=== PATIENT | female | born 2000 | race African-American/Black ===

== ENCOUNTER 2019-04-29 11:35 | Emergency (ER) | payer OTHER ==
[2019-04-29] MEDS ORDERED: SODIUM CHLORIDE 0.9% 1,000 ML IV ONE (12:40)
[2019-04-29] MEDS ORDERED: KETOROLAC 30 MG/ML VIAL IVP STA (12:40)
[2019-04-29] MEDS ORDERED: ONDANSETRON 4 MG/2 ML VIAL IVP STA (12:40)
--- NOTE | 2019-04-29 12:41 | ED Physician Documentation ---
PD HPI ABD PAIN - Stated complaint Stated Complaint: V/D - Chief complaint Chief Complaint: Abd Pain - History obtained from History obtained from: Patient - History of Present Illness Timing - onset: Today (She was fine last night, she woke up abruptly at 730 this morning with central abdominal cramps that are coming and going associated with nausea, vomiting, and diarrhea. She was getting better and then got worse again. No recent travel or sick contacts. No fevers. She is a history of anemia, no abdominal surgeries in the past.) Review of Systems Ten Systems: 10 systems reviewed and negative Constitutional: denies: Fever, Chills Respiratory: denies: Dyspnea, Cough GI: reports: Abdominal Pain, Nausea, Vomiting, Diarrhea. denies: Hematemesis, Bloody / black stool : denies: Dysuria, Frequency PD PAST MEDICAL HISTORY - Past Medical History Past Medical History: Yes Respiratory: Asthma - Past Surgical History Past Surgical History: Yes HEENT: Other - Present Medications Home Medications: Ambulatory Orders Medication Instructions Recorded Confirmed Ondansetron Odt [Zofran] 4 mg TL Q6H PRN #10 tablet 04/29/19 RX: Dicyclomine [Bentyl] 20 mg PO QID PRN #15 capsule 04/29/19 - Allergies Allergies/Adverse Reactions: Allergies Allergy/AdvReac Type Severity Reaction Status Date / Time No Known Drug Allergies Allergy Verified 04/29/19 11:48 - Social History Does the pt smoke?: Yes Smoking Status: Current some day smoker Does the pt drink ETOH?: Yes Does the pt have substance abuse?: No Substance Use and Type: Marijuana - Immunizations Immunizations are current?: Yes - POLST Patient has POLST: No PD ED PE NORMAL - Vitals Vital signs reviewed: Yes - General General: Alert and oriented X 3, No acute distress - HEENT HEENT: Pharynx benign - Cardiac Cardiac: RRR, No murmur - Abdomen Abdomen: Normal bowel sounds, Soft, Non tender - Neuro Neuro: Alert and oriented X 3, Normal speech Results - Vitals Vitals: Vital Signs - 24 hr 04/29/19 04/29/19 04/29/19 11:46 11:48 13:43 Temperature 36.4 C L Heart Rate 79 74 63 Respiratory 14 16 18 Rate Blood Pressure 126/79 119/83 H 130/84 H O2 Saturation 100 100 100 04/29/19 14:01 Temperature Heart Rate 70 Respiratory 16 Rate Blood Pressure 120/65 O2 Saturation 100 Oxygen O2 Source Room air - Labs Labs: Laboratory Tests 04/29/19 04/29/19 04/29/19 12:28 12:37 12:51 WBC 7.1 RBC 4.83 Hgb 13.1 Hct 42.2 MCV 87.4 MCH 27.1 MCHC 31.0 L RDW 14.2 Plt Count 266 MPV 10.7 Neut # (Auto) 6.2 Lymph # (Auto) 0.6 L Butler # (Auto) 0.2 Eos # (Auto) 0.0 Baso # (Auto) 0.0 Absolute Nucleated RBC 0.00 Nucleated RBC % 0.0 Sodium Potassium Chloride Carbon Dioxide Anion Gap BUN Creatinine Estimated GFR (MDRD) Glucose Calcium Total Bilirubin AST ALT Alkaline Phosphatase Total Protein Albumin Globulin Albumin/Globulin Ratio Lipase Urine Color YELLOW Urine Clarity CLEAR Urine pH 5.5 Ur Specific [place] >1.030 >=1.030 H Urine Protein NEGATIVE Urine Glucose (UA) NEGATIVE Urine Ketones TRACE Urine Occult Blood NEGATIVE Urine Nitrite NEGATIVE Urine Bilirubin NEGATIVE Urine Urobilinogen 0.2 (NORMAL) Ur Leukocyte Esterase NEGATIVE Ur Microscopic Review NOT INDICATED Urine Culture Comments NOT INDICATED Urine HCG, Qual NEGATIVE 04/29/19 12:51 WBC RBC Hgb Hct MCV MCH MCHC RDW Plt Count MPV Neut # (Auto) Lymph # (Auto) [place] # (Auto) Eos # (Auto) Baso # (Auto) Absolute Nucleated RBC Nucleated RBC % Sodium 139 Potassium 4.2 Chloride 106 Carbon Dioxide 24 Anion Gap 9.0 BUN 12 Creatinine 0.6 Estimated GFR (MDRD) 154 Glucose 110 H Calcium 9.3 Total Bilirubin 0.7 AST 14 ALT 10 Alkaline Phosphatase 66 Total Protein 7.8 Albumin 4.2 Globulin 3.6 Albumin/Globulin Ratio 1.2 Lipase 26 Urine Color Urine Clarity Urine pH Ur Specific [place] Urine Protein Urine Glucose (UA) Urine Ketones Urine Occult Blood Urine Nitrite Urine Bilirubin Urine Urobilinogen Ur Leukocyte Esterase Ur Microscopic Review Urine Culture Comments Urine HCG, Qual PD MEDICAL DECISION MAKING - ED course ED course: 18-year-old woman with history and physical examination most consistent with simple viral gastroenteritis. After the ministration of IV fluids, Toradol, and Zofran she felt much better and was asymptomatic and pain-free. On reexamination prior to discharge at 1:45 PM she was nontender. She passed an oral challenge. Close return precautions were given. Departure - Departure Disposition: 01 Home, Self Care Clinical Impression: Gastroenteritis, Dehydration Condition: Good Record reviewed to determine appropriate education?: Yes Instructions: ED Gastroenteritis Viral Prescriptions: RX: Dicyclomine [Bentyl] 20 mg PO QID PRN #15 capsule PRN Reason: Abdominal Pain Ondansetron Odt [Zofran] 4 mg TL Q6H PRN #10 tablet PRN Reason: Nausea / Vomiting Comments: As discussed return anytime if worse, if pain moved to the bottom right as I showed you, or if you run a fever. Return in 12 to 24 hours if not better. Discharge Date/Time: 04/29/19 14:02
[2019-04-29 13:28] LABS: BILIRUBIN,URINE NEGATIVE (NEGATIVE); GLUCOSE, URINE (UA) NEGATIVE (NEGATIVE); KETONES,URINE (UA) TRACE mg/dL (NEGATIVE); LEUKOCYTE ESTERASE, URINE NEGATIVE (NEGATIVE); NITRITE,URINE NEGATIVE (NEGATIVE); OCCULT BLOOD,URINE NEGATIVE (NEGATIVE); PH,URINE 5.5 PH (5.0-7.5); PROTEIN,URINE NEGATIVE (NEGATIVE); UROBILINOGEN,URINE 0.2 (NORMAL) E.U./dL (NORMAL)
[2019-04-29 13:29] LABS: BASOPHILS % (AUTO) 0.4 %; EOSINOPHILS % (AUTO) 0.1 %; HGB - HEMOGLOBIN 13.1 g/dL (12.0-16.0); LYMPHOCYTES # (AUTO) 0.6 10^3/uL (1.5-3.5); LYMPHOCYTES % (AUTO) 8.9 %; MEAN CORPUSCULAR HEMOGLOBIN 27.1 pg (27.0-31.0); MEAN CORPUSCULAR VOLUME 87.4 fL (81.0-99.0); MEAN PLATELET VOLUME 10.7 fL (7.9-10.8); MONOCYTES # (AUTO) 0.2 10^3/uL (0.0-1.0); MONOCYTES % (AUTO) 2.8 %; NEUTROPHILS # (AUTO) 6.2 10^3/uL (1.5-6.6); NEUTROPHILS % (AUTO) 87.7 %; PLT - PLATELET COUNT 266 10^3/uL (130-450); RED BLOOD COUNT 4.83 10^6/uL (4.20-5.40); RED CELL DISTRIBUTION WIDTH 14.2 % (12.0-15.0); WHITE BLOOD COUNT 7.1 x10^3/uL (4.8-10.8)
[2019-04-29 13:34] LABS: CLARITY,URINE CLEAR (CLEAR)
[2019-04-29 13:44] LABS: ALBUMIN 4.2 g/dL (3.2-5.5); ALBUMIN/GLOBULIN RATIO 1.2 (1.0-2.2); BILIRUBIN,TOTAL 0.7 mg/dL (0.2-1.0); CALCIUM 9.3 mg/dL (8.5-10.3); CREATININE 0.6 mg/dL (0.4-1.0); TOTAL PROTEIN 7.8 g/dL (6.7-8.2)
[2019-04-29 13:52] LABS: HCG UR QUAL NEGATIVE
[2019-04-29 14:02] VITALS: BP 120/65
== END 2019-04-29 14:02 | disposition home or self-care (01) ==
LOC: ED 11:35
DX: K52.9 Noninfective gastroenteritis and colitis, unspecified (principal); E86.0 Dehydration; F17.200 Nicotine dependence, unspecified, uncomplicated
CPT/HCPCS: 36415; 80053; 81001; 81003; 81025; 83690; 85025; 87086; 96361; 96374; 99283

== ENCOUNTER 2019-09-14 18:04 | Emergency (ER) | payer OTHER ==
[2019-09-14 18:10] VITALS: BP 121/100
[2019-09-14] MEDS ORDERED: TETANUS/DIPHTHERIA/PERTUSSIS 0.5 ML SYRINGE IM ONE (18:23)
[2019-09-14] MEDS ORDERED: BUFFERED LIDOCAINE 10 ML SYRINGE SUBQ STA (18:23)
--- NOTE | 2019-09-14 18:23 | ED Physician Documentation ---
PD HPI UPPER EXT INJURY - Stated complaint Stated Complaint: L RING FINGER LAC - Chief complaint Chief Complaint: Laceration - History obtained from History obtained from: Patient - History of Present Illness Location: Left (Right-handed woman was getting the pit out of an avocado and stabbed her fourth finger in the left hand with a knife at home just prior to arrival. Tetanus is unknown.) Review of Systems Constitutional: reports: Reviewed and negative Cardiac: reports: Reviewed and negative Respiratory: reports: Reviewed and negative PD PAST MEDICAL HISTORY - Past Medical History Respiratory: Asthma - Past Surgical History Past Surgical History: Yes HEENT: Other - Present Medications Home Medications: Ambulatory Orders Medication Instructions Recorded Confirmed Dicyclomine [Bentyl] 20 mg PO QID PRN #15 capsule 04/29/19 Ondansetron Odt [Zofran] 4 mg TL Q6H PRN #10 tablet 04/29/19 - Allergies Allergies/Adverse Reactions: Allergies Allergy/AdvReac Type Severity Reaction Status Date / Time No Known Drug Allergies Allergy Verified 09/14/19 18:07 - Social History Does the pt smoke?: Yes Smoking Status: Current some day smoker Does the pt drink ETOH?: Yes Does the pt have substance abuse?: No - Immunizations Immunizations are current?: Yes - POLST Patient has POLST: No PD ED PE NORMAL - Vitals Vital signs reviewed: Yes - General General: Alert and oriented X 3, No acute distress - Extremities Extremities: Other (The left fourth finger, level of the mid phalanx there is a laceration on the radial side measuring 1.5 cm. No distal neurovascular compromise.) - Psych Psych: Normal mood, Normal affect Results - Vitals Vitals: Vital Signs - 24 hr 09/14/19 18:07 Temperature 36.7 C Heart Rate 99 Respiratory 16 Rate Blood Pressure 121/100 H O2 Saturation 100 Oxygen O2 Source Room air Procedures - Laceration (location) 4th finger Length in cm: 1.5 Wound type: Linear Neurovascular status: Sensory intact, Motor intact, Vascular intact Tendon involvement: Tendon intact Anesthesia: Lidocaine 1%, With bicarb Wound Preparation: Irrigated copiously NS Skin layer closure: Nylon, Size #-0 - enter number (4-0), Sutures - enter # (5) Other: Tetanus booster given Complexity: Simple Departure - Departure Disposition: 01 Home, Self Care Clinical Impression: Laceration Instructions: ED Laceration Hand Comments: Come back for any signs of infection which would include: Redness, swelling, drainage, increased pain, or fevers. You can wash it soap and water. Keep it covered and moist with bacitracin ointment which is available over the counter; avoid neosporin. Follow-up with your physician in 14 days for suture removal. Your blood pressure was elevated today on check into the emergency department. This does not mean that you have hypertension, it is a common phenomenon to come to the emergency department and have elevated blood pressure. I recommend that you see your primary care physician within the week to have it rechecked when you are feeling better.
== END 2019-09-14 18:55 | disposition home or self-care (01) ==
LOC: ED 18:04
DX: S61.215A Laceration without foreign body of left ring finger without damage to nail, initial encounter (principal); W26.0XXA Contact with knife, initial encounter; Y93.G1 Activity, food preparation and clean up; Y92.009 Unspecified place in unspecified non-institutional (private) residence as the place of occurrence of the external cause; Z23 Encounter for immunization; R03.0 Elevated blood-pressure reading, without diagnosis of hypertension; F17.200 Nicotine dependence, unspecified, uncomplicated
CPT/HCPCS: 12001; 90471